=== PATIENT | male | born 1985 | race Caucasian/White ===

== ENCOUNTER 2017-02-01 08:30 | Emergency (ER) | payer SELFPAY ==
[~2017-02-01] VITALS: Wt 113.4 kg
[~2017-02-01 08:30] MED LIST: ALBUTEROL0.09 MG/A2 IH; ANAPROX DS550 MG PO; CLARITIN10 MG PO; DAYPRO600 M1 PO; EPIPEN 2-PAK1 MG/ML MR; LIDEX 0.05% CRE15 GM T; MOTRIN800 MG PO; NAPROSYN500 MG PO; NEURONTIN300 MG PO; PRILOSEC20 MG PO; SKELAXIN800 MG PO; ZITHROMAX Z PA250 MG PO; ZOFRAN ODT4 MG SL
[2017-02-01] MEDS ORDERED: Motrin,Rufen800 MG PO (09:41)
== END 2017-02-01 09:56 | disposition home or self-care (01) ==
LOC: ED 08:30
DX: S89.91XA Unspecified injury of right lower leg, initial encounter (principal); F17.200 Nicotine dependence, unspecified, uncomplicated; Z91.030 Bee allergy status; W21.03XA Struck by baseball, initial encounter; Y93.64 Activity, baseball; Y92.9 Unspecified place or not applicable; Y99.9 Unspecified external cause status

== ENCOUNTER 2017-08-17 11:44 | Emergency (ER) | payer OTHER ==
[~2017-08-17] VITALS: Wt 108.9 kg
[~2017-08-17 11:44] MED LIST changes: +Motrin,Rufen800 MG PO
[2017-08-17] MEDS ORDERED: Motrin,Rufen800 MG PO (15:03)
[2017-08-17] MEDS ORDERED: CYCLOBENZAPRINE5 M3 PO (15:03)
== END 2017-08-17 15:11 | disposition home or self-care (01) ==
LOC: ED 11:44
DX: M25.552 Pain in left hip (principal); M79.652 Pain in left thigh; F17.200 Nicotine dependence, unspecified, uncomplicated; Z91.030 Bee allergy status

== ENCOUNTER 2021-09-05 21:29 | Emergency (ER) | payer OTHER ==
[~2021-09-05 21:29] MED LIST changes: +CYCLOBENZAPRINE5 M3 PO
== END 2021-09-06 01:00 | disposition left against medical advice (07) ==
LOC: ED 21:29
DX: Z53.21 Procedure and treatment not carried out due to patient leaving prior to being seen by health care provider (principal)

== ENCOUNTER 2021-09-08 11:42 | Emergency (ER) | payer OTHER ==
[~2021-09-08] VITALS: Ht 185.4 cm; Wt 104.3 kg
[2021-09-08] MEDS ORDERED: SEPTDS PO (14:03)
[2021-09-08] MEDS ORDERED: IBUPROFEN600 MG PO (14:03)
== END 2021-09-08 14:25 | disposition home or self-care (01) ==
LOC: ED 11:42
DX: L02.811 Cutaneous abscess of head [any part, except face] (principal)

== ENCOUNTER 2022-03-28 21:21 | Emergency (ER) | payer OTHER ==
[~2022-03-28] VITALS: Ht 182.8 cm; Wt 106.6 kg
[~2022-03-28 21:21] MED LIST changes: +IBUPROFEN600 MG PO; +SEPTDS PO
[2022-03-28] MEDS ORDERED: EPIPEN 2-P0.3 MG/0.3 IJ (22:43)
== END 2022-03-28 22:40 | disposition home or self-care (01) ==
LOC: ED 21:21
DX: T78.2XXA Anaphylactic shock, unspecified, initial encounter (principal); Y92.89 Other specified places as the place of occurrence of the external cause

== ENCOUNTER 2022-10-15 13:57 | Emergency (ER) | payer OTHER ==
[~2022-10-15] VITALS: Wt 104.3 kg
[~2022-10-15 13:57] MED LIST changes: +EPIPEN 2-P0.3 MG/0.3 IJ
== END 2022-10-15 15:23 | disposition home or self-care (01) ==
LOC: ED 13:57
DX: S62.394A Other fracture of fourth metacarpal bone, right hand, initial encounter for closed fracture (principal); Z91.030 Bee allergy status; Z98.890 Other specified postprocedural states; W22.03XA Walked into furniture, initial encounter; Y93.89 Activity, other specified; Y92.89 Other specified places as the place of occurrence of the external cause; Y99.8 Other external cause status